=== PATIENT | female | born 1970 | race Caucasian/White ===

== ENCOUNTER → 2016-11-03 | Outpatient (CLI) | payer OTHER ==
[~2016-11-03] MED LIST: BIOT1CAP8 PO; MULT-506 PO; OXYC-57 PO
== END | disposition home or self-care (01) ==
LOC: C.PAPS 08:18
PROVIDERS: ATTEND Obstetrics & Gynecology
DX: Z12.4 Encounter for screening for malignant neoplasm of cervix (principal)

== ENCOUNTER → 2016-12-04 | Day surgery (SDC) | payer OTHER ==
[2016-11-21 12:53] VITALS: Ht 172.7 cm; Wt 72.7 kg
--- NOTE | 2016-12-01 08:49 | HISTORY & PHYSICAL EXAMINATION ---
DATE OF ADMISSION: 12/04/2016 The patient is for surgery on 12/04/2016. CHIEF COMPLAINT: Vaginal lesions and suspected endometriosis. 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 At the time of that exam, vaginal nodularity and polypoid tissue was noted. Ultrasound was obtained and this was essentially normal. There is a small 1.7 cm fibroid along the left posterior uterine wall, this is subserosal. This has been present since at least 2013. Ovaries appeared normal. There was no free pelvic fluid. Despite the normal ultrasound, I suspect the patient may have pelvic endometriosis based on the bimanual exam. When the patient was seen for her preoperative visit on 11/23/2016, I did see a polypoid lesion extending from the left lateral vaginal wall high in the vagina. This was noted as well as a small nodular structure. In addition, I could also feel nodularity higher along the posterior cervix. PAST MEDICAL HISTORY: ALLERGIES: No known drug allergies. MEDICATIONS: The patient takes a daily vitamin. ILLNESSES: The patient reports anxiety. PAST MEDICAL HISTORY: Notable for HSV infection. SURGERIES: The patient has had bilateral breast reduction. In addition, tonsillectomy with adenoidectomy as well as oral tooth extraction. FAMILY HISTORY: Her mother has hypertension. Her maternal grandmother had breast cancer. SOCIAL HISTORY: The patient is single. She denies smoking cigarettes. She drinks alcohol but less than 1 drink per week. PHYSICAL EXAM: HEENT:Grossly WNL NECK:Supple, without masses. Thyroid not enlarged. CHEST:Lungs are clear without wheezing. Regular heart sounds, no murmurs, gallops or rubs. ABDOMEN:Soft, nontender, no masses palpable. PELVIC: External genitalia WNL. Vagina is pink and stimulated with a polypoid lesion extending from left lateral wall of the vagina and a nodular lesion palpable slightly higher on the left vaginal wall. There is also some nodularity higher along the posterior cervix. EXT:No cyanosis, clubbing or edema. IMPRESSION: A 46-year-old white female with vaginal lesions present and findings consistent with pelvic endometriosis. PLAN: The patient is for diagnostic laparoscopy with possible operative laparoscopy to include placement of a scope into the abdomen with or without lysis of adhesions, laser ablation, fulguration or excision of endometrial implants. Also for biopsy of vaginal polyp or lesions. The patient is aware of the risks of infection, bleeding, perforation of the uterus, injury to internal organs which might require additional surgery or treatment, failure to correct the problem, hospitalization, and risk of anesthesia. The patient is aware of the option of doing nothing, which I do not recommend at this point as I feel we need a definitive diagnosis. The patient wishes to proceed with the surgeries as above. RUPERT
[~2016-12-04] VITALS: Ht 172.7 cm; Wt 72.7 kg
[~2016-12-04] MED LIST changes: +ATROPINE SULFATE 0.1 MG/ML 5ML SYR IV PRN; +DEXAMETHASONE SOD INJ 4 MG/ML VIAL ONE; +EpHEDrine SULFATE INJ 50 MG/ML AMP ONE; +FENTANYL CITRATE INJ 50 MCG/1 ML 2 ML VIAL IV PRN; +FENTANYL CITRATE INJ 50 MCG/1 ML 2 ML VIAL ONE; +GLYCOPYRROLATE INJ 0.2 MG/ML VIAL ONE; +IBUPROFEN 600 MG TAB PO PRN; +KETOROLAC TROMETHAMINE 30 MG/ML VIAL IV. PRN; +KETOROLAC TROMETHAMINE 30 MG/ML VIAL ONE; +LACTATED RINGER'S 1000ML 1,000 ML IV SCH; +LIDO 2%/EPINEPHRINE 1:100000 20 ML VIAL INFIL ONE; +LIDOCAINE HCL 2% 2 ML VIAL (20MG/ML) ONE; +METHYLENE BLUE 0.5% 10 ML VIAL ONE; +MIDAZOLAM HCL 1 MG/ML 2ML VIAL ONE; +NEOSTIGMINE METHYLSULFATE 5 MG/5 ML SYR ONE; +ONDANSETRON INJ 2 MG/ML 2 ML VIAL IV PRN; +ONDANSETRON INJ 2 MG/ML 2 ML VIAL ONE; +OXYCODONE/ACETAMINOPHEN 5-325 TAB PO PRN; +PHENYLEPHRINE HCL INJ 10 MG/ML VIAL ONE; +PROMETHAZINE HCL INJ 12.5 MG in SODIUM CHLORIDE 0.9% 50ML 50 ML IV PRN; +PROPOFOL IV EMULSION 10 MG/ML 20 ML VIAL IV ONE; +ROCURONIUM BROMIDE 10 MG/ML 5 ML VIAL ONE; +SILVER NITR/POTASSIUM NITRATE APPLICATOR ONE; +SODIUM CHLORIDE 0.9% 1000ML 1,000 ML IV SCH; +SUCCINYLCHOLINE CHLORIDE 20 MG/ML 10 ML VIAL IV ONE
--- NOTE | 2016-12-04 10:02 | History & Physical Bridge - SC ---
H&P Re-Evaluation Bridge Note: I have examined the patient, reviewed the History & Physical and in the interval since the performance of the History & Physical I have noted the following changes of clinical significance: No changes noted
--- NOTE | 2016-12-04 11:08 | [facility] Post Operative Brief Note ---
Immediate Operative Summary Operative Date December 04, 2016. Pre-Operative Diagnosis Endometriosis, vaginal lesions Post-Operative Diagnosis Minimal endometriosis, vaginal lesions Procedure(s) Performed Diagnostic Laparscopy, Vaginal Biopsies Surgeon Dr. Stein Mixer Operator Raw Salt Surgeon(s) None Estimated Blood Loss 25 ml Findings See dictated note. Specimens A. Mid Left Vaginal Wall Biopsy B. Lesion Anterior Left Vaginal Wall Biopsy Complication(s) None Disposition Recovery Room / PACU
--- NOTE | 2016-12-04 11:22 | Discharge Instructions-SurgCtr ---
Discharge Instructions Date of Service December 04, 2016. Visit Reason for Visit: Endometriosis, vaginal lesions Discharge Discharge Diagnosis / Problem: S/P Diagnostic laparoscopy and vaginal biopsies Discharge Goals Goal(s): Diagnostic testing, Therapeutic intervention Activity Recommendations Activity Limitations: per Instructions/Follow-up section ACTIVITY RECOMMENDATIONS: * Rest the first 2-3 days. You should be back to your normal activity levels by day 3. * No heavy lifting for 2 weeks. * No intercourse, tampons or douching for 2 weeks. * You may shower the next day. * Do not drive anytime that you are taking narcotic pain medicines. RETURN TO SCHOOL/WORK: * May return to school or work after 3 days. DIET: Nausea may occur in the immediate post-operative period. If so, take clear liquids such as tea, bouillon, apple juice until all nausea has subsided, then resume usual diet. MEDICATIONS: Resume previous medications unless instructed otherwise by your surgeon. Ibuprofen 200mg 2-3 tablets every 4-6 hours as needed -- OR -- Aleve 2 tablets every 8-12 hours as needed for post-operative discomfort If needed take one percocet every 4 hours for severe pain. Medications are over the counter. Tylenol may be used if above medications are contraindicated or not preferred. Medication should be taken with food or milk. Do not take on an empty stomach. SPECIAL CARE INSTRUCTIONS: * Check temperature twice daily for one week. report any elevation over 100.4 degrees. * You may experience some vagina spotting and/or bleeding. This is normal for 1 -2 weeks and should not be heavier than a normal period. If it is unusual in amount, call your physician. * Post-operative discomfort may consist of a sore throat, a "bloated" feeling and pain in the shoulders. these are normal symptoms, which usually only last for 2-3 days. * Remove band-aids tomorrow and shower. There is no need to replace band-aids unless there is drainage or discomfort. You can remove steristrips after two weeks if they have not fallen off already. FOLLOW UP VISIT: Call your doctor's office for a post-operative 2-4 week visit if not already scheduled. [phone] Anesthesia . Post Anesthesia Instructions: If you have had General Anesthesia or IV Sedation: * Do not drive today. * Resume driving when surgeon permits. * Do not make important decisions or sign legal documents today. * Call surgeon for: 1. Temperature elevations greater than 101 degrees F. 2. Uncontrollable pain. 3. Excessive bleeding. 4. Persistent nausea and vomiting. 5. Medication intolerance (nausea, vomiting or rash). * For nausea and vomiting use only clear liquids such as: tea, soda, bouillon until nausea subsides, then gradually increase diet as tolerated. * If you have any concerns or questions, call your surgeon's office. If physician is unavailable and it is an emergency, call 911 or go to the nearest emergency room. . Diet Recommendations Home Diet: resume previous diet Procedures Procedures Performed: Diagnostic Laparscopy, Vaginal Biopsies Pending Studies Studies pending at discharge: yes List of pending studies: We will call you with the pathology report on the vaginal biopsies. There was evidence of very minimal endometriosis in the posterior cul-de-sac (behind the cervix and uterus). Medical Emergencies . Who to Call and When: Medical Emergencies: If at any time you feel your situation is an emergency, please call 911 immediately. . Non-Emergent Contact Non-Emergency issues call your: Team Guide Call Non-Emergent contact if: you have a fever, your pain is not controlled, your pain is worsening, wound has increased drainage, wound has increased redness . . "Provider Documentation" section prepared by Kathleen Stein. . [place] Drug Monitoring Program Search Results: patient reviewed within database, no issues identified
--- NOTE | 2016-12-04 12:20 | Anesthesia Progress Nt - [facility] ---
Anesthesia Post Op Note Date & Time December 04, 2016 at 12:20 Vital Signs Pain Intensity: 0 Vital Signs Past 12 Hours Date Time Temp Pulse Resp B/P Pulse Ox O2 Delivery O2 Flow Rate FiO2 12/04/16 11:50 50 16 130/85 100 12/04/16 11:46 133/82 12/04/16 11:45 51 18 100 12/04/16 11:45 50 18 12/04/16 11:41 128/99 12/04/16 11:40 49 14 99 12/04/16 11:40 50 14 12/04/16 11:39 37.2 12/04/16 11:35 64 16 12/04/16 11:35 64 16 128/92 99 12/04/16 11:30 66 12 12/04/16 11:30 67 12 125/85 98 12/04/16 11:26 118/74 12/04/16 11:25 60 12 100 12/04/16 11:25 59 12 12/04/16 11:20 63 11 114/74 100 12/04/16 11:20 64 11 12/04/16 11:15 59 16 12/04/16 11:15 58 16 108/75 100 12/04/16 11:10 68 29 110/73 100 12/04/16 11:10 36.9 65 16 110/73 100 Diffusion Mask 8 12/04/16 11:10 68 29 12/04/16 08:25 36.9 81 16 133/99 100 Room Air Notes Mental Status: alert / awake / arousable, participated in evaluation Pt Amnestic to Procedure: Yes Nausea / Vomiting: adequately controlled Pain: adequately controlled Airway Patency, RR, SpO2: stable & adequate BP & HR: stable & adequate Hydration State: stable & adequate Anesthetic Complications: no major complications apparent
--- NOTE | 2016-12-04 12:43 | OPERATIVE REPORT ---
DATE OF OPERATION: 12/04/2016 PREOPERATIVE DIAGNOSES: Endometriosis and vaginal lesions. POSTOPERATIVE DIAGNOSIS: Minimal endometriosis and vaginal lesions, pathology pending. PROCEDURE: Diagnostic laparoscopy with vaginal biopsies. SURGEON: Dr. Kathleen Stein. SEWING MACHINE ASSEMBLER: Dr. Nielson. OPERATION AND FINDINGS: PROCEDURE: The patient was taken to the operating room where general anesthesia was administered. After an adequate level was obtained, she was placed in dorsal lithotomy position. Abdomen, vulva, vagina, and cervix were prepped with Betadine solution. The patient was draped. The external cervical os was dilated with small curved hemostat and small dilator. Hulka clamp was then inserted. The patient's uterus is retroverted. Hulka clamp was inserted into the uterus. A Spivey catheter was then inserted into the bladder and the bladder drained. The Spivey catheter was left in place during the procedure. An incision was then made at the lower edge of the umbilicus using the scalpel. Veress needle was inserted successfully on the first attempt. The patient's abdomen was insufflated with 2.5 liters of CO2. Veress needle was removed and laparoscopic trocar and sheath inserted. Trocar was removed and laparoscope inserted. A second incision was made suprapubically using the scalpel. A 5 mm port was inserted under direct visualization. The trocar for the port was removed and probe inserted. The pelvic organs were visualized. The patient's uterus, fallopian tubes, and ovaries appeared normal. Uterus was markedly retroverted which made it difficult to visualize the cul-de-sac. The anterior cul-de-sac appeared free of endometriosis or adhesion. There was a potential hernia at the insertion site of the right round ligament. Liver edge could be seen along with a portion of gallbladder and these appeared normal. It was not possible to visualize the patient's appendix as her colon and rectum were very much dilated. It was finally possible to visualize the cul-de-sac and the posterior cervix. There did indeed appear to be some very small lesions consistent with endometriosis in that area. I did not attempt to cauterize them given that this area was very difficult to access with laparoscopic instruments and given the fact that she is not symptomatic with her endometriosis. At this point, the laparoscopy was ended. Gas was allowed to escape from the abdomen. Laparoscopic instruments were removed. The laparoscopic incisions were closed using interrupted sutures of 3-0 Vicryl. Steri-Strips and Band-Aids were placed. Attention was then turned to the vaginal lesions. There were 2 lesions along the left vaginal wall, one of which was more polypoid in nature, the other more nodular. These lesions were excised using Magana scissors. Hemostasis was obtained with interrupted sutures of 4-0 chromic catgut. At this point, the procedure was ended. The patient tolerated the procedure well and was taken to the recovery room in good condition. Estimated blood loss in total was approximately 25 mL. I attest to the content of the Intraoperative Record and any orders documented therein. Any exceptions are noted below. EMELYND
[2016-12-04 12:53] VITALS: BP 143/87; PULSE 51; TEMP 37.4; O2SAT 100
== END | disposition home or self-care (01) ==
LOC: X.SURG 08:08
PROVIDERS: ATTEND Obstetrics & Gynecology
DX: N80.0 Endometriosis of uterus (principal); N84.2 Polyp of vagina

== ENCOUNTER → 2017-11-09 | Outpatient (CLI) | payer OTHER ==
[~2017-11-09] MED LIST changes: -ATROPINE SULFATE 0.1 MG/ML 5ML SYR IV PRN; -DEXAMETHASONE SOD INJ 4 MG/ML VIAL ONE; -EpHEDrine SULFATE INJ 50 MG/ML AMP ONE; -FENTANYL CITRATE INJ 50 MCG/1 ML 2 ML VIAL IV PRN; -FENTANYL CITRATE INJ 50 MCG/1 ML 2 ML VIAL ONE; -GLYCOPYRROLATE INJ 0.2 MG/ML VIAL ONE; -IBUPROFEN 600 MG TAB PO PRN; -KETOROLAC TROMETHAMINE 30 MG/ML VIAL IV. PRN; -KETOROLAC TROMETHAMINE 30 MG/ML VIAL ONE; -LACTATED RINGER'S 1000ML 1,000 ML IV SCH; -LIDO 2%/EPINEPHRINE 1:100000 20 ML VIAL INFIL ONE; -LIDOCAINE HCL 2% 2 ML VIAL (20MG/ML) ONE; -METHYLENE BLUE 0.5% 10 ML VIAL ONE; -MIDAZOLAM HCL 1 MG/ML 2ML VIAL ONE; -NEOSTIGMINE METHYLSULFATE 5 MG/5 ML SYR ONE; -ONDANSETRON INJ 2 MG/ML 2 ML VIAL IV PRN; -ONDANSETRON INJ 2 MG/ML 2 ML VIAL ONE; -OXYC-57 PO; -OXYCODONE/ACETAMINOPHEN 5-325 TAB PO PRN; -PHENYLEPHRINE HCL INJ 10 MG/ML VIAL ONE; -PROMETHAZINE HCL INJ 12.5 MG in SODIUM CHLORIDE 0.9% 50ML 50 ML IV PRN; -PROPOFOL IV EMULSION 10 MG/ML 20 ML VIAL IV ONE; -ROCURONIUM BROMIDE 10 MG/ML 5 ML VIAL ONE; -SILVER NITR/POTASSIUM NITRATE APPLICATOR ONE; -SODIUM CHLORIDE 0.9% 1000ML 1,000 ML IV SCH; -SUCCINYLCHOLINE CHLORIDE 20 MG/ML 10 ML VIAL IV ONE
== END | disposition home or self-care (01) ==
LOC: C.PAPS 13:49
PROVIDERS: ATTEND Obstetrics & Gynecology
DX: Z12.4 Encounter for screening for malignant neoplasm of cervix (principal)